=== PATIENT | male | born 1995 | race Two or more races ===

== ENCOUNTER 2024-05-30 17:30 | Inpatient (IN) | payer MEDICAID, OTHER ==
[~2024-05-30] VITALS: Ht 182.9 cm; Wt 110.1 kg
[2024-05-30 18:54] LABS: Chloride 106 mmol/L (98-107); Potassium 4.7 mmol/L (3.5-5.1); Sodium 138 mmol/L (136-145)
[2024-05-30 18:55] LABS: Anion Gap 12 (5-15); Calcium 10.1 mg/dL (8.7-10.4); Carbon Dioxide 20 mmol/L (20-31)
[2024-05-30 19:00] LABS: Blood Alcohol < 3.0 mg/dL (<10); Blood Urea Nitrogen 13 mg/dL (9-23); Glucose 102 mg/dL (74-106)
[2024-05-30 19:33] LABS: Salicylate < 3.0 mg/dL (-30)
[2024-05-30 19:51] LABS: Acetaminophen < 2.0 UG/ML (10.0-20.0)
[2024-05-30] MEDS: SODIUM CHLORIDE 0.9% 500 ML IVB ONE (19:53)
[2024-05-30] MEDS ORDERED: NITROGLYCERIN 0.4 MG SL TAB SL PRN (22:15)
[2024-05-30] MEDS ORDERED: ONDANSETRON HCL 4 MG/2 ML VIAL IV PRN (22:15)
[2024-05-30] MEDS ORDERED: ACETAMINOPHEN 325 MG TAB PO PRN (22:15)
[2024-05-30] MEDS ORDERED: MORPHINE SULFATE INJ 2 MG/ml SYRG IV PRN (22:15)
[2024-05-30] MEDS: FOLIC ACID 1 MG, MULTIPLE VITAMIN 10 ML, MAGNESIUM SULF SDV 50% 8 MEQ, THIAMINE INJ 100... INJ SCH (22:30)
[2024-05-30 22:47] LABS: Urine Bacteria None Seen /hpf (None Seen)
[2024-05-30 22:55] LABS: Urine Blood Negative /uL (Negative); Urine Clarity Clear (Clear); Urine Color Light-Yellow (Yellow); Urine Protein, UAD Negative (Negative); Urine Specific Gravity 1.015 (1.001-1.035); Urine Urobilinogen Normal (Negative); Urine WBC 1 /hpf (0 - 3); Urine pH 5.5 (5.0-9.0)
[2024-05-30] MEDS: PANTOPRAZOLE 40 MG/10 ML VIAL INJ IV ONE (22:57)
[2024-05-30] MEDS: LORazepam 2MG/ML-1ML VIAL IV PRN (22:58)
[2024-05-30] MEDS: SODIUM CHLORIDE 0.9% 1,000 ML IV SCH (22:58)
[2024-05-30 23:07] LABS: Basophils # (auto) 0.2 10 ^3/uL (0-0.2); Basophils % (auto) 0.8 % (0.0-2.0); Eosinophils # (auto) 0 10 ^3/uL (0-0.8); Hematocrit 45.4 % (41.0-53.0); Hemoglobin 15.1 g/dL (13.5-17.5); Lymphocytes # (auto) 1.8 10 ^3/uL (0.4-5.4); Lymphocytes % (auto) 9.5 % (10.0-50.0); Mean Corpuscular Hemoglobin 27.2 pg (28.0-32.0); Mean Corpuscular Hgb Conc. 33.2 g/dL (32.0-36.0); Monocytes # (auto) 0.5 10 ^3/uL (0-1.3); Monocytes % (auto) 2.8 % (0.0-12.0); Neutrophils # (auto) 16.5 10 ^3/uL (1.6-8.6); Neutrophils % (auto) 86.9 % (37.0-80.0); Nucleated Red Blood Cells % 0.2 %; Platelet Count (auto) 397 10^3/uL (140-450); Red Blood Cells 5.54 10^6/uL (4.5-5.90); Red Cell Distribution Width 14.3 % (11.8-14.3)
[2024-05-30 23:14] LABS: Amphetamine Screen, Urine Neg (NEGATIVE); Barbiturate Scree,Urine Neg (NEGATIVE); Benzodiazephine Screen, Urine Neg (NEGATIVE); Cannabinoid Screen, Urine Neg (NEGATIVE); Cocaine Screen, Urine Neg (NEGATIVE); Opiate Scree,Urine Neg (NEGATIVE); Phencyclidine Screen, Urine Neg (NEGATIVE)
[2024-05-31 00:30] VITALS: PULSE 129; RESP 15; O2SAT 96
[2024-05-31] MEDS ORDERED: DIVA500T13 PO (02:11)
[2024-05-31] MEDS ORDERED: OLAN15TA31 PO (02:11)
[2024-05-31] MEDS: LORazepam 2MG/ML-1ML VIAL IV PRN (04:06)
[2024-05-31 04:14] LABS: Basophils # (auto) 0.1 10 ^3/uL (0-0.2); Basophils % (auto) 0.6 % (0.0-2.0); Eosinophils # (auto) 0 10 ^3/uL (0-0.8); Eosinophils % (auto) 0.2 % (0.0-7.0); Hemoglobin 14.9 g/dL (13.5-17.5); Lymphocytes # (auto) 2.5 10 ^3/uL (0.4-5.4); Lymphocytes % (auto) 14.4 % (10.0-50.0); Mean Corpuscular Hemoglobin 27.8 pg (28.0-32.0); Mean Corpuscular Hgb Conc. 33.9 g/dL (32.0-36.0); Mean Corpuscular Volume 81.9 fL (80.0-100.0); Monocytes # (auto) 0.8 10 ^3/uL (0-1.3); Monocytes % (auto) 4.8 % (0.0-12.0); Neutrophils # (auto) 13.7 10 ^3/uL (1.6-8.6); Nucleated Red Blood Cells % 0.1 %; Platelet Count (auto) 350 10^3/uL (140-450); Red Blood Cells 5.37 10^6/uL (4.5-5.90); Red Cell Distribution Width 14.2 % (11.8-14.3); White Blood Cell 17.1 10^3/uL (4.4-10.8)
[2024-05-31] MEDS: LORazepam 2MG/ML-1ML VIAL IV ONE (04:15)
[2024-05-31 04:25] LABS: Alanine Aminotransferase 38 U/L (7-40); Albumin 4.4 g/dL (3.2-4.8); Alkaline Phosphatase 64 U/L (46-116); Anion Gap 10 (5-15); Aspartate Aminotransferase 10 U/L (13-40); BUN/Creatinine Ratio 11.5 (10.0-20.0); Bilirubin, Total 0.3 mg/dL (0.2-1.0); Blood Urea Nitrogen 9 mg/dL (9-23); Calcium 9.4 mg/dL (8.7-10.4); Carbon Dioxide 21 mmol/L (20-31); Chloride 110 mmol/L (98-107); Glucose 92 mg/dL (74-106); Potassium 3.7 mmol/L (3.5-5.1); Sodium 141 mmol/L (136-145)
[2024-05-31 04:28] LABS: INR 1.08 (0.9-1.15); Partial Thromboplastin Time 25.8 SEC (24.5-34.5); Prothrombin Time 11.4 sec (9.3-11.8)
[2024-05-31] MEDS: LORazepam 2MG/ML-1ML VIAL ONE (04:32)
[2024-05-31 05:07] LABS: Lactic Acid w/Reflex 4.1 mmol/L (0.4-2.0)
[2024-05-31] MEDS: SODIUM CHLOR 0.9% PF (SALINE LOCK) 10ML VIAL/SYR IV SCH (06:15)
[2024-05-31] MEDS: PIPERACILLIN-TAZOB 3.375GM 100 ML IV SCH (06:25)
[2024-05-31 07:46] VITALS: PULSE 132; RESP 18; O2SAT 96
[2024-05-31] MEDS: ERGOCALCIFEROL 50,000 UNIT(1.25MG) CAP PO SCH (10:00)
[2024-05-31] MEDS: PANTOPRAZOLE 40 MG/10 ML VIAL INJ IV SCH (10:30)
[2024-05-31 13:23] LABS: Base Excess 0.1 mmol/L (-2.0-3.0)
[2024-05-31 15:44] VITALS: BP 141/84; PULSE 130; RESP 22; TEMP 98.5; O2SAT 98
[2024-05-31 16:25] VITALS: BP 141/84; PULSE 130; RESP 20; TEMP 98.5; O2SAT 98
[2024-05-31 20:00] VITALS: PULSE 122
[2024-06-01 08:00] VITALS: PULSE 101
[2024-06-01 10:27] VITALS: BP 135/81; PULSE 103; RESP 20; O2SAT 97
[2024-06-01 12:43] VITALS: BP 125/71; PULSE 104; RESP 20; O2SAT 95
[2024-06-01 12:46] LABS: Basophils # (auto) 0 10 ^3/uL (0-0.2); Basophils % (auto) 0.2 % (0.0-2.0); Eosinophils # (auto) 0.1 10 ^3/uL (0-0.8); Eosinophils % (auto) 0.9 % (0.0-7.0); Hematocrit 46.8 % (41.0-53.0); Hemoglobin 15.6 g/dL (13.5-17.5); Lymphocytes # (auto) 1.8 10 ^3/uL (0.4-5.4); Mean Corpuscular Hemoglobin 27.6 pg (28.0-32.0); Mean Corpuscular Hgb Conc. 33.3 g/dL (32.0-36.0); Monocytes # (auto) 0.7 10 ^3/uL (0-1.3); Monocytes % (auto) 4.7 % (0.0-12.0); Neutrophils # (auto) 12.2 10 ^3/uL (1.6-8.6); Neutrophils % (auto) 82.2 % (37.0-80.0); Platelet Count (auto) 355 10^3/uL (140-450); Red Blood Cells 5.64 10^6/uL (4.5-5.90); Red Cell Distribution Width 14.9 % (11.8-14.3); White Blood Cell 14.9 10^3/uL (4.4-10.8)
[2024-06-01 13:01] LABS: Alanine Aminotransferase 27 U/L (7-40); Albumin 4.4 g/dL (3.2-4.8); Alkaline Phosphatase 72 U/L (46-116); Anion Gap 8 (5-15); Aspartate Aminotransferase < 8 U/L (13-40); BUN/Creatinine Ratio 12.2 (10.0-20.0); Bilirubin, Total 0.6 mg/dL (0.2-1.0); Blood Urea Nitrogen 10 mg/dL (9-23); Calcium 9.5 mg/dL (8.7-10.4); Carbon Dioxide 22 mmol/L (20-31); Chloride 111 mmol/L (98-107); Glucose 94 mg/dL (74-106); Magnesium 2.4 mg/dL (1.6-2.6); Potassium 4.1 mmol/L (3.5-5.1); Sodium 141 mmol/L (136-145); Total Protein 7.3 g/dL (5.7-8.2)
[2024-06-01 20:00] VITALS: PULSE 108
[2024-06-01 21:00] VITALS: BP 121/71; PULSE 80; RESP 20; TEMP 98; O2SAT 98
[2024-06-01] MEDS: FOLIC ACID 1 MG, MULTIPLE VITAMIN 10 ML, MAGNESIUM SULF SDV 50% 8 MEQ, THIAMINE INJ 100... INJ SCH (22:18)
[2024-06-02 08:00] VITALS: PULSE 96; RESP 19
[2024-06-02 09:00] VITALS: BP 109/62; PULSE 89; RESP 22; TEMP 98; O2SAT 93
[2024-06-02 13:00] VITALS: BP 106/56; PULSE 87; RESP 21; TEMP 98.5; O2SAT 98
[2024-06-02 14:42] LABS: Basophils # (auto) 0.1 10 ^3/uL (0-0.2); Basophils % (auto) 0.4 % (0.0-2.0); Eosinophils # (auto) 0.3 10 ^3/uL (0-0.8); Eosinophils % (auto) 2.1 % (0.0-7.0); Hematocrit 47.1 % (41.0-53.0); Hemoglobin 15.4 g/dL (13.5-17.5); Lymphocytes # (auto) 2.5 10 ^3/uL (0.4-5.4); Lymphocytes % (auto) 18.4 % (10.0-50.0); Mean Corpuscular Hemoglobin 27.2 pg (28.0-32.0); Mean Corpuscular Hgb Conc. 32.7 g/dL (32.0-36.0); Mean Corpuscular Volume 83.2 fL (80.0-100.0); Monocytes # (auto) 0.7 10 ^3/uL (0-1.3); Neutrophils # (auto) 9.9 10 ^3/uL (1.6-8.6); Neutrophils % (auto) 74.1 % (37.0-80.0); Platelet Count (auto) 384 10^3/uL (140-450); Red Blood Cells 5.66 10^6/uL (4.5-5.90); Red Cell Distribution Width 14.4 % (11.8-14.3); White Blood Cell 13.4 10^3/uL (4.4-10.8)
[2024-06-02 14:46] LABS: Chloride 109 mmol/L (98-107); Potassium 4.4 mmol/L (3.5-5.1); Sodium 140 mmol/L (136-145)
[2024-06-02 14:47] LABS: Anion Gap 5 (5-15); Carbon Dioxide 26 mmol/L (20-31)
[2024-06-02 14:48] LABS: Calcium 9.5 mg/dL (8.7-10.4)
[2024-06-02 14:52] LABS: Glucose 98 mg/dL (74-106)
[2024-06-02 14:53] LABS: BUN/Creatinine Ratio 11.1 (10.0-20.0); Blood Urea Nitrogen 11 mg/dL (9-23); Magnesium 2.2 mg/dL (1.6-2.6)
[2024-06-02 17:00] VITALS: BP 92/54; PULSE 65; RESP 22; TEMP 98.1; O2SAT 99
[2024-06-02] MEDS: MULTIPLE VITAMINS W/ MINERALS TAB PO ONE (17:57)
[2024-06-02] MEDS: FOLIC ACID 1 MG TAB PO ONE (17:57)
[2024-06-02] MEDS: THIAMINE HCL 100 MG TAB PO ONE (17:57)
[2024-06-02 20:00] VITALS: PULSE 82; PULSE 97
[2024-06-02 21:00] VITALS: BP 91/59; PULSE 78; RESP 20; TEMP 97.8; O2SAT 96
[2024-06-03 01:00] VITALS: BP 115/59; PULSE 69; RESP 20; TEMP 97.3; O2SAT 97
[2024-06-03 05:00] VITALS: BP 101/57; PULSE 63; RESP 20; TEMP 97.5; O2SAT 100
[2024-06-03 06:01] LABS: Basophils # (auto) 0.1 10 ^3/uL (0-0.2); Basophils % (auto) 0.6 % (0.0-2.0); Eosinophils # (auto) 0.5 10 ^3/uL (0-0.8); Eosinophils % (auto) 4.6 % (0.0-7.0); Hematocrit 45.6 % (41.0-53.0); Hemoglobin 15.3 g/dL (13.5-17.5); Lymphocytes # (auto) 3.1 10 ^3/uL (0.4-5.4); Lymphocytes % (auto) 29.4 % (10.0-50.0); Mean Corpuscular Hemoglobin 27.9 pg (28.0-32.0); Mean Corpuscular Hgb Conc. 33.5 g/dL (32.0-36.0); Mean Corpuscular Volume 83.4 fL (80.0-100.0); Monocytes # (auto) 0.7 10 ^3/uL (0-1.3); Monocytes % (auto) 6.2 % (0.0-12.0); Neutrophils # (auto) 6.2 10 ^3/uL (1.6-8.6); Neutrophils % (auto) 59.2 % (37.0-80.0); Nucleated Red Blood Cells % 0.1 %; Platelet Count (auto) 386 10^3/uL (140-450); Red Blood Cells 5.47 10^6/uL (4.5-5.90); White Blood Cell 10.5 10^3/uL (4.4-10.8)
[2024-06-03 06:03] LABS: Anion Gap 7 (5-15); Carbon Dioxide 25 mmol/L (20-31); Chloride 109 mmol/L (98-107); Potassium 3.8 mmol/L (3.5-5.1); Sodium 141 mmol/L (136-145)
[2024-06-03 06:05] LABS: Calcium 9.6 mg/dL (8.7-10.4)
[2024-06-03 06:09] LABS: Blood Urea Nitrogen 14 mg/dL (9-23); Glucose 88 mg/dL (74-106)
[2024-06-03 07:36] VITALS: PULSE 89; RESP 19
[2024-06-03 08:00] VITALS: PULSE 97
[2024-06-03 08:53] VITALS: BP 126/74; PULSE 109; RESP 19; TEMP 98.4; O2SAT 97
[2024-06-03] MEDS: MAGNESIUM OXIDE 400 MG TAB PO SCH (10:00)
[2024-06-03] MEDS: MULTIPLE VITAMINS W/ MINERALS TAB PO SCH (10:00)
[2024-06-03] MEDS: THIAMINE HCL 100 MG TAB PO SCH (10:00)
[2024-06-03] MEDS: FOLIC ACID 1 MG TAB PO SCH (10:00)
== END 2024-06-03 10:20 | disposition left against medical advice (07) | DRG 812 ==
LOC: EDBD 17:30 → ER 17:30 → TELE 22:06 → TELE-WESTW 05-31 15:33
PROVIDERS: ADMIT Internal Medicine Geriatric Medicine; ATTEND Internal Medicine Geriatric Medicine
DX: T50.991A Poisoning by other drugs, medicaments and biological substances, accidental (unintentional), initial encounter (principal); G92.8 Other toxic encephalopathy; R65.10 Systemic inflammatory response syndrome (SIRS) of non-infectious origin without acute organ dysfunction; G24.09 Other drug induced dystonia; E55.9 Vitamin D deficiency, unspecified; J45.909 Unspecified asthma, uncomplicated; F12.10 Cannabis abuse, uncomplicated; F15.90 Other stimulant use, unspecified, uncomplicated; Z59.00 Homelessness unspecified; Z79.899 Other long term (current) drug therapy; Y92.89 Other specified places as the place of occurrence of the external cause
CPT/HCPCS: 36415; 36600; 70450; 71045; 71250; 74176; 80048; 80053; 80307; 80320; 80329; 81001; 82140; 82306; 82553; 82607; 82746; 82805; 82962; 83036; 83605; 83735; 84443; 85025; 85610; 85730; 87040; 87086; 93005; 99291; G0378; J2470; J2543